=== PATIENT | male | born 1985 | race Caucasian/White ===

== ENCOUNTER 2022-02-28 14:57 | Emergency (ER) | payer BC, SELFPAY ==
--- OUTSIDE RECORDS SUMMARY | 2022-02-28 14:59 | XMS REPORT | Continuity of Care Document ---
:1985 Author Organization [facility] Address [address] [place] [address] [address] [place] [address] Care Team Providers Name Role Phone Rickey Ramos MD Attending Clinician Doctor Unassigned, [place] Attending Clinician Unavailable Payers Payer Name Policy Type Policy Number Effective Date Expiration Date S ource Problems Condition Condition Condition Status Onset Resolution Last Treating Co mments Source Name Details Category Date Date Treatment Clinician Date Intermitte Intermitte Disease Active Overview : Univers nt nt 4-04 Added ity of diarrhea diarrhea 00:00: automatic Ramakrishna as 00 ally from Medical request Branch for surgery [id number] Family Family Disease Active Overview: Univer s history of history of 404 Added it y of colon colon 00:00: automatic [place] cancer cancer 00 ally from Medical request Branch for surgery [id number] Colon Colon Disease Active Overview: Univer s cancer cancer 4-04 Added ity of screening screening 00:00: [place] 00 ally from Medical request Branch for surgery [id number] Mixed Mixed Disease Active Univers hyperlipid hyperlipid 4-03 it y of emia emia 00:00: [place] 00 Medical Branch Elevated Elevated Disease Active Unive rs bilirubin bilirubin 4-03 ity of 00:00: [place] 00 Medical Branch Family Family Disease Active Univers history of history of 3-30 it y of Cook Cook 00:00: [place] syndrome syndrome 00 Medica l Branch Bipolar Bipolar Disease Active Univers affective affective 3-30 [place] of disorder, disorder, 00:[place] remission 00 Medi vivek status status Branch unspecifie unspecifie d d Allergies, Adverse Reactions, Alerts This patient has no known allergies or adverse reactions. Social History Social Habit Start Date Stop Date Quantity Comments [facility] Start Date Stop Date Source Former smoker 2019-02-14 00:00:00 2019-02-14 00:00:00 [facility] [place] [facility] Medications Ordered Filled Start Stop Current Ordering Indication Dosage Frequency Signature Comments Components Source Medication Medication Date Date Medication? Clinician (SIG) Name Name levoFLOXaci Yes [id number] 750mg Take 1 Univers n 750 mg 4-24 tablet by ity of tablet 00:00: mouth [place] 00 every 24 Medical (twenty-fo Branch ur) hours. benzonatate Yes [id number] 100mg Take 1 Univers 100 mg 4-24 capsule by ity of capsule 00:00: mouth 3 [place] 00 (three) Medical times Branch daily as needed for Cough. levoFLOXaci 2019- No [id number] 750mg Take 1 Univers n 750 mg 4-24 09-07 tablet by ity o f tablet 00:00: 00:00 mouth [place] 00 :00 every 24 Medical (twenty-fo Branch ur) hours. benzonatate 2019- No [id number] 100mg Take 1 Univers 100 mg 4-24 09-07 capsule by ity of capsule 00:00: 00:00 mouth 3 [place] 00 :00 (three) Medical times Branch daily as needed for Cough. albuterol Yes [id number] 2{puff} Inhale 2 Univers 90 4-11 Puffs ity of mcg/actuati 00:00: every 6 Ramakrishna as on inhaler 00 (six) Medical hours as Branch needed for Wheezing or Shortness of Breath. albuterol 2019- No [id number] 2{puff} Inhale 2 Univers 90 4-11 09-07 Puffs ity of mcg/actuati 00:00: 00:00 every 6 [place] inhaler 00 :00 (six) Medical hours as Branch needed for Wheezing or Shortness of Breath. divalproex 2017- Yes 250mg Take 1 Univ ers 250 mg EC 5-05 tablet by ity o f tablet 00:00: mouth [place] 00 every 8 Medical (eight) Branch hours. divalproex 2018-0 Yes 250mg Take 1 Univ ers 250 mg EC 5-05 tablet by ity o f tablet 00:00: mouth [place] 00 every 8 Medical (eight) Branch hours. Vital Signs Vital Name Observation Time Observation Value Comments Source Systolic blood 2019-02-14 20:19:00 125 mm[Hg] Univer sity of pressure [place] [facility] Diastolic blood 2019-02-14 20:19:00 80 mm[Hg] [facility] rsity of pressure [facility] Heart rate 2019-02-14 20:19:00 70 /min [facility] Respiratory rate 2019-02-14 20:19:00 14 /min [facility] Oxygen saturation in 2019-02-14 20:19:00 98 /min [facility] Arterial blood by [facility] Pulse oximetry [place] Body temperature 2019-02-14 20:08:00 37.33 [facility] Body height 2019-02-14 20:08:00 177.8 cm [facility] Body weight 2019-02-14 20:08:00 74.844 kg [facility] BMI 2019-02-14 20:08:00 23.68 kg/m2 [facility] Procedures Procedure Date / Time Performed Performing Clinician Sour e AC PANEL 20 + LACTIC 2019-02-14 21:04:00 Rickey Ramos [facility] VW 2019-02-14 20:38:05 [facility] o f [facility] EKG-12 LEAD 2019-02-14 20:19:19 [facility] o [facility] CONSENT/REFUSAL FOR 2019-02-14 19:43:01 Doctor Unassigned, No Un [facility] DIAGNOSIS AND Name [facility] TREATMENT Encounters Start End Encounter Admission Attending Care Care Encounter Source Date/Time Date/Time Type Type Clinicians Facility Department ID 2019-02-14 2019-02-14 Emergency Richard [facility] [id number] [facility] 15:14:23 16:25:00 Rickey Snider [id number] i ty of [place] [id number] 084 Branch 2019-02-14 2019-02-14 Orders Doctor RAY [id number] Univers 00:00:00 00:00:00 Only Unassigned, GAURI [id number] ity of [place] [facility] [id number] Ramakrishna [id number] [facility] 009 Branch Results Test Description Test Time Test Comments Results Result Comments Source AC PANEL 20 + LACTIC ACID 2019-02-14 21:09:00 Test Item Value Reference Range Interpretation Comme nts PH (test code = 2) 7.35-7.45 PCO2 (test code = 3625048048) See_Comment [Automated message] The system which ge nerated this result transmit katelyn reference range: 35 - 45 mmHg. The reference range was not used to interpret th is result as normal/abnormal . PO2 (test code = 7034318775) See_Comment [Automated message] The system which ge nerated this result transmit katelyn reference range: 80 - 100 mmHg. The reference range was not used to interpret th is result as normal/abnormal . HCO3 (test code = 5109210760) See_Comment [Automated message] The system which ge nerated this result transmit katelyn reference range: 22 - 26 mEq/L. The reference range was not used to interpret th is result as normal/abnormal . BE (test code = 4982291171) See_Comment [Automated message] The system which ge nerated this result transmit katelyn reference range: -3.0 - 3 .0 mEq/L. The reference range was not used to interpret th is result as normal/abnormal . THB (test code = 9648066673) 15.6 g/dL 13.5-18 %O2HB (test code = 8924086225) 95.2 % 94-99 %COHB ART (test code = 0.7 % 0-1.5 5880242907) %METHB ART (test code = 0.3 % 0.4-1.5 L 7258436370) VOL%O2 ART (test code = 20.9 % 15-23 0536216690) NA (test code = 9986940724) 140 mmol/L 135-145 K+ (test code = 1511033279) 4.0 mmol/L 3.5-5 AC CA IONZ (test code = 4.80 mg/dL 4.5-5.3 5000672983) GLUCOSE (test code = 97 mg/dL 70-110 8083677256) LACTIC ACID (test code = 1.57 mmol/L 0.5-2.2 8227987759) Lab Interpretation (test code = Abnormal 47700-5) [facility] [id number] 20:40:26* * * * * * * * ORIGINAL REPORT * * * * * * * *CHEST PORTABLE ONE VIEW HISTORY:Dyspnea TECHNIQUE: Frontal, portable projection of the chest is obtained. COMPARISON: 10/01/2018 FINDINGS: The lungs are clear. The heart size and mediastinal silhouetteare normal. No pleural effusion or pneumothorax is seen. CONCLUSIONS: No acute cardiopulmonary disease. [facility], Radiant Results Inft User - 02/14/2019 3:40 PMCDT* * * * * * * * ORIGINAL REPORT * * * * * * * *CHEST PORTABLE ONE VIEWHISTORY:DyspneaTECHNIQUE: Frontal, portable projection of the chest is obtained.COMPARISON: 10/01/2018FINDINGS: The lungs are clear. The heart size and mediastinal silhouetteare normal. No pleural effusion or pneumothorax is seen.C ONCLUSIONS: No acute cardiopulmonary disease.[facility]
[2022-02-28 15:37] LABS: Absolute Lymphocytes (CBC) 0.9 K/uL (0.7-4.9); Hematocrit 43.4 % (39.6-49.0); Lymphocytes % 16.7 % (15.3-44.8); MCV 88.3 fL (80-100); MPV 9.8 fL (7.6-11.3); RBC Red Blood Cell Count 4.92 M/uL (4.33-5.43)
[2022-02-28 15:56] LABS: Albumin 4.1 g/dL (3.4-5.0); Bilirubin Total 0.5 mg/dL (0.2-1.0); Protein, Total 7.5 g/dL (6.4-8.2)
[2022-02-28] MEDS ORDERED: NA CHLORIDE 0.9% 1,000 ML ONE (16:22)
[2022-02-28] MEDS ORDERED: ONDANSETRON 4 MG/2 ML VIAL ONE (16:22)
[2022-02-28] MEDS ORDERED: FAMOTIDINE 20 MG/2 ML VIAL IV ONE (16:23)
--- NOTE | 2022-02-28 16:33 | RAD REPORT ---
EXAM DESCRIPTION: CTAbdomen Pelvis W Contrast - 02/28/2022 4:24 pm CLINICAL HISTORY: Abdominal pain. lower abdomen pain COMPARISON: No comparisons TECHNIQUE: Biphasic CT imaging of the abdomen and pelvis was performed with 100 ml non-ionic IV cont rast. All CT scans are performed using dose optimization technique as appropriate and may include automated exposure control or mA/KV adjustment according to patient size. FINDINGS: The lung bases are clear. The liver, spleen, pancreas, adrenal glands and kidneys are within normal limits. No bowel obstruction, free air, significant free fluid or abscess. Trace free fluid is seen right per icolic gutter. There is mild inflammatory change seen surrounding several sigmoid diverticula in the right aspect of the pelvis. The appendix is normal. No evidence of significant lymphadenopathy. No suspicious bony findings. IMPRESSION: Mild diverticulitis suspected involving the sigmoid colon in the pelvis. No abscess is e vident. Moderate stool is present throughout the colon.
[2022-02-28 16:51] LABS: Urine Blood Negative (Negative); Urine Glucose Negative (Negative); Urine Protein Negative (Negative)
--- NOTE | 2022-02-28 17:01 | ER ---
Nurse's Notes [facility] Name: Rivera Gil Age: 36 yrs Sex: Male : 1985 Arrival Date: 02/28/2022 Time: 15:00 Bed DIS2 Private MD: Diagnosis: Diverticulitis of intestine, part unspecified, without perforation or abscess without bleeding Presentation: 02/28 14:52 Chief complaint: EMS states: About an hour ago pt c/o of ABD pain below the umbilicus vg1 that radiates to the RLQ; last BM was today at 0900, pt stated "normal", denies vomiting/diarrhea, stated nausea. Also denies dark stools. Last meal was at 1030 today. 14:52 Coronavirus screen: Vaccine status: Patient reports being unvaccinated. Client denies vg1 travel out of the [place] in the last 14 days. Ebola Screen: Patient denies exposure to infectious person. Patient denies travel to an Ebola-affected area in the 21 days before illness onset. Initial Sepsis Screen: Does the patient meet any 2 criteria? No. Patient's initial sepsis screen is negative. Does the patient have a suspected source of infection? No. Patient's initial sepsis screen is negative. Risk Assessment: Do you want to hurt yourself or someone else? Patient reports no desire to harm self or others. Onset of symptoms was February 28, 2022. 14:52 Method Of Arrival: EMS: [place] [id number] 14:52 Acuity: MEE 3 vg1 14:52 Chief complaint: Patient states: rectal pressure, and pain sharp pain during urination. vg1 Triage Assessment: 14:52 General: Appears in no apparent distress. comfortable, Behavior is calm, cooperative. vg1 Pain: Complains of pain in suprapubic area, right lower quadrant and left lower quadrant Pain currently is 7 out of 10 on a pain scale. Quality of pain is described as sharp, Pain began 2 hours ago. 14:52 EENT: No signs and/or symptoms were reported regarding the EENT system. Neuro: Level of vg1 Consciousness is awake, alert, obeys commands, Oriented to person, place, time, situation. Cardiovascular: Patient's skin is warm and dry. Respiratory: Airway is patent Respiratory effort is even, unlabored. GI: Abdomen is flat, non-distended, Abdomen is tender to palpation in suprapubic area, right lower quadrant and left lower quadrant Reports nausea, Patient currently denies diarrhea, vomiting. : Reports pain in suprapubic area with urination. Derm: Skin is intact, Skin is pink, warm \\T\\ dry. Musculoskeletal: Circulation, motion, and sensation intact. Historical: - Allergies: 15:03 No Known Allergies; vg1 - Home Meds: 15:03 None [Active]; vg1 - PMHx: 15:03 None; vg1 - PSHx: 15:03 None; vg1 - Immunization history:: Client reports having NOT received the Covid vaccine. - Social history:: Smoking status: Patient denies any tobacco usage or history of. Patient uses alcohol, occasionally. Screenin:06 Abuse screen: Denies threats or abuse. Nutritional screening: No deficits noted. vg1 Tuberculosis screening: No symptoms or risk factors identified. Fall Risk No fall in past 12 months (0 pts). No secondary diagnosis (0 pts). IV access (20 points). Ambulatory Aid- None/Bed Rest/Nurse Assist (0 pts). Gait- Normal/Bed Rest/Wheelchair (0 pts) Mental Status- Oriented to own ability (0 pts). Total Moreno Fall Scale indicates No Risk (0-24 pts). Assessment: 16:14 Reassessment: Patient appears in no apparent distress at this time. Patient and/or tp1 family updated on plan of care and expected duration. Pain level reassessed. Patient is alert, oriented x 3, equal unlabored respirations, skin warm/dry/pink. complaining of mid lower quadrant pain, rates pain 6/10. denies nausea at this time. 16:15 Reassessment: escorted to CT via wheelchair by [employer]. tp1 16:35 Reassessment: returned from CT. tp1 17:15 Reassessment: Patient appears in no apparent distress at this time. No changes from tp1 previously documented assessment. Patient is alert, oriented x 3, equal unlabored respirations, skin warm/dry/pink. 17:21 Reassessment: awaiting discharge for antibiotics to finish administering. tp1 Vital Signs: 14:52 BP 132 / 90; Pulse 64; Resp 16; Temp 98.2(O); Pulse Ox 99% on R/A; Weight 77.11 kg; vg1 Height 5 ft. 10 in. (177.80 cm); Pain 7/10; 15:15 BP 133 / 89; Pulse 57; Resp 16; Pulse Ox 100% on R/A; tp1 16:54 BP 129 / 76; Pulse 72; Resp 16; Pulse Ox 100% on R/A; tp1 17:33 BP 125 / 83; Pulse 77; Resp 16; Pulse Ox 100% on R/A; tp1 14:52 Body Mass Index 24.39 (77.11 kg, 177.80 cm) vg1 ED Course: 14:52 Arm band placed on. vg1 15:00 Patient arrived in ED. tp1 15:03 Ruy Hernandez PA is PHCP. cp 15:03 Ruy Barrios MD is Attending Physician. cp 15:03 Triage completed. vg1 15:06 Patient has correct armband on for positive identification. Placed in gown. Bed in low vg1 position. Call light in reach. Side rails up X 1. 15:32 CBC with Diff Sent. em1 15:32 CMP Sent. em1 15:32 Lipase Sent. em1 15:32 Initial lab(s) drawn, by me, sent to lab. Inserted saline lock: 22 gauge in left em1 forearm, using aseptic technique. Blood collected. 16:10 Billie Cortes, RN is Primary Nurse. tp1 17:56 No provider procedures requiring assistance completed. ss 18:05 IV discontinued, intact, bleeding controlled, No redness/swelling at site. Pressure ss dressing applied. Administered Medications: 16:42 Drug: NS 0.9% 1000 ml Route: IV; Rate: 1 bolus; Site: left forearm; tp1 18:05 Follow up: IV Status: Completed infusion; IV Intake: 1000ml ss 16:43 Drug: Zofran (Ondansetron) 4 mg Route: IVP; Site: left forearm; tp1 18:05 Follow up: Response: No adverse reaction ss 16:46 Drug: Pepcid (famotidine) 20 mg Route: IVP; Site: left forearm; tp1 18:05 Follow up: Response: No adverse reaction ss 17:05 Drug: Rocephin (cefTRIAXone) 1 grams Route: IV; Rate: calculated rate; Site: left tp1 forearm; 17:26 Follow up: Response: No adverse reaction; IV Status: Completed infusion; IV Intake: tp1 100ml 17:10 Drug: Ketorolac 15 mg Route: IVP; Site: left forearm; tp1 18:05 Follow up: Response: No adverse reaction ss 17:12 Drug: Cipro (ciprofloxacin) 500 mg Route: PO; tp1 17:34 Follow up: Response: No adverse reaction tp1 17:33 Drug: metroNIDAZOLE 500 mg Volume: 100 ml; Route: IVPB; Infused Over: 30 mins; Site: tp1 left forearm; 18:05 Follow up: IV Status: Completed infusion ss Intake: 17:26 IV: 100ml; Total: 100ml. tp1 18:05 IV: 1000ml; Total: 1100ml. ss Outcome: 17:00 Discharge ordered by . cp 17:56 Condition: good ss 17:56 Discharge instructions given to patient, family, Instructed on discharge instructions, follow up and referral plans. medication usage, Demonstrated understanding of instructions, follow-up care, medications, Prescriptions given X 4. 18:05 Discharged to home ambulatory, with family. ss 18:06 Patient left the ED. ss Signatures: Lokesh Jansen em1 Christi Oden, NICOLAS RN ss Ruy Hernandez PA PA cp Garcia, Victoria, RN RN vg1 Billie Cortes RN RN tp1 Corrections: (The following items were deleted from the chart) 16:20 16:17 Reassessment: Patient appears in no apparent distress at this time. Patient tp1 and/or family updated on plan of care and expected duration. Pain level reassessed. Patient is alert, oriented x 3, equal unlabored respirations, skin warm/dry/pink. complaining of mid lower quadrant pain, rates pain 6/10 tp1 16:52 16:17 Reassessment: Patient appears in no apparent distress at this time. Patient tp1 and/or family updated on plan of care and expected duration. Pain level reassessed. Patient is alert, oriented x 3, equal unlabored respirations, skin warm/dry/pink. complaining of mid lower quadrant pain, rates pain 6/10. denies nausea at this time tp1
--- NOTE | 2022-02-28 17:02 | EDPHYS ---
Physician Documentation [facility] Name: Rivera Gil Age: 36 yrs Sex: Male : 1985 Arrival Date: 02/28/2022 Time: 15:00 Bed DIS2 Private MD: ED Physician Ruy Barrios HPI: 02/28 15:15 This 36 yrs old Male presents to ER via EMS with complaints of Abdominal Pain. cp 15:15 The patient presents with abdominal pain in the periumbilical area. Onset: The cp symptoms/episode began/occurred 2 hour(s) ago. The symptoms do not radiate. Associated signs and symptoms: Pertinent negatives: nausea, vomiting, and diarrhea, anorexia, blood in stools, chest pain, constipation, dysuria, fever, testicular pain. The symptoms are described as constant. Severity of pain: in the emergency department the pain is unchanged despite home interventions. Historical: - Allergies: 15:03 No Known Allergies; vg1 - Home Meds: 15:03 None [Active]; vg1 - PMHx: 15:03 None; vg1 - PSHx: 15:03 None; vg1 - Immunization history:: Client reports having NOT received the Covid vaccine. - Social history:: Smoking status: Patient denies any tobacco usage or history of. Patient uses alcohol, occasionally. ROS: 15:20 Constitutional: Negative for body aches, chills, fever, poor PO intake. cp 15:20 Cardiovascular: Negative for chest pain, edema, palpitations. cp 15:20 Respiratory: Negative for cough, shortness of breath, wheezing. 15:20 Abdomen/GI: Positive for abdominal pain, Negative for nausea, vomiting, and diarrhea, constipation, anorexia, black/tarry stool, rectal bleeding. 15:20 Back: Negative for pain at rest, pain with movement. 15:20 : Negative for urinary symptoms, testicular pain 15:20 Neuro: Negative for altered mental status, dizziness, headache, weakness. 15:20 All other systems are negative. Exam: 15:25 Constitutional: The patient appears in no acute distress, alert, awake, cp non-diaphoretic, non-toxic, well developed, well nourished. 15:25 Head/Face: Normocephalic, atraumatic. cp 15:25 Eyes: Periorbital structures: appear normal, Conjunctiva: normal, no exudate, no injection, Sclera: no appreciated abnormality, Lids and lashes: appear normal, bilaterally. 15:25 ENT: External ear(s): are unremarkable, Nose: is normal, Mouth: Lips: moist, Oral mucosa: pink and intact, moist, Posterior pharynx: Airway: no evidence of obstruction, patent. 15:25 Neck: ROM/movement: is normal, is supple, without pain, no range of motions limitations. 15:25 Chest/axilla: Inspection: normal, Palpation: is normal, no crepitus, no tenderness. 15:25 Cardiovascular: Rate: normal, Rhythm: regular. 15:25 Respiratory: the patient does not display signs of respiratory distress, Respirations: normal, no use of accessory muscles, labored breathing, is not present, Breath sounds: are clear throughout, no decreased breath sounds, no stridor, no wheezing. 15:25 Abdomen/GI: Inspection: abdomen appears normal, Bowel sounds: active, all quadrants, Palpation: soft, in all quadrants, mild abdominal tenderness, in the umbilical area and suprapubic area, rebound tenderness, is not appreciated, voluntary guarding, is not appreciated, involuntary guarding, is not appreciated. 15:25 Back: pain, is absent, ROM is normal. Vital Signs: 14:52 BP 132 / 90; Pulse 64; Resp 16; Temp 98.2(O); Pulse Ox 99% on R/A; Weight 77.11 kg; vg1 Height 5 ft. 10 in. (177.80 cm); Pain 7/10; 15:15 BP 133 / 89; Pulse 57; Resp 16; Pulse Ox 100% on R/A; tp1 16:54 BP 129 / 76; Pulse 72; Resp 16; Pulse Ox 100% on R/A; tp1 17:33 BP 125 / 83; Pulse 77; Resp 16; Pulse Ox 100% on R/A; tp1 14:52 Body Mass Index 24.39 (77.11 kg, 177.80 cm) vg1 MDM: 15:[address] [facility] 16:00 Differential diagnosis: appendicitis, bowel obstruction, diverticulitis, cp Pyelonephritis, Testicular Torsion, Ureterolithiasis, urinary tract infection. 17:00 Data reviewed: vital signs, nurses notes, lab test result(s), radiologic studies, plain cp films. 17:00 Counseling: I had a detailed discussion with the patient and/or guardian regarding: the cp historical points, exam findings, and any diagnostic results supporting the discharge/admit diagnosis, lab results, radiology results, the need for outpatient follow up, a family practitioner, to return to the emergency department if symptoms worsen or persist or if there are any questions or concerns that arise at home. Response to treatment: the patient's symptoms have markedly improved after treatment, and as a result, I will discharge patient. ED course: VSS. Pain and nausea improved with meds. Patient appears non-toxic. Will discharge to home for continued monitoring. 02/28 15:07 Order name: CBC with Diff cp 02/28 15:07 Order name: CMP cp 02/28 15:07 Order name: Lipase 02/28 15:42 Order name: CBC with Automated Diff; Complete Time: 16:07 EDMS 02/28 15:57 Order name: Comprehensive Metabolic Panel; Complete Time: 16:07 EDMS 02/28 15:07 Order name: CT Abd/Pelvis - IV Contrast Only 02/28 15:57 Order name: Lipase; Complete Time: 16:07 EDMS 02/28 16:34 Order name: CT; Complete Time: 16:48 EDMS 02/28 16:52 Order name: Urine Dipstick-Ancillary EDID 02/28 15:07 Order name: IV Saline Lock; Complete Time: 15:32 cp 02/28 15:07 Order name: Labs collected and sent; Complete Time: 15:32 cp 02/28 16:48 Order name: Urine Dipstick-Ancillary (obtain specimen); Complete Time: 16:54 cp Administered Medications: 16:42 Drug: NS 0.9% 1000 ml Route: IV; Rate: 1 bolus; Site: left forearm; tp1 18:05 Follow up: IV Status: Completed infusion; IV Intake: 1000ml ss 16:43 Drug: Zofran (Ondansetron) 4 mg Route: IVP; Site: left forearm; tp1 18:05 Follow up: Response: No adverse reaction ss 16:46 Drug: Pepcid (famotidine) 20 mg Route: IVP; Site: left forearm; tp1 18:05 Follow up: Response: No adverse reaction ss 17:05 Drug: Rocephin (cefTRIAXone) 1 grams Route: IV; Rate: calculated rate; Site: left tp1 forearm; 17:26 Follow up: Response: No adverse reaction; IV Status: Completed infusion; IV Intake: tp1 100ml 17:10 Drug: Ketorolac 15 mg Route: IVP; Site: left forearm; tp1 18:05 Follow up: Response: No adverse reaction ss 17:12 Drug: Cipro (ciprofloxacin) 500 mg Route: PO; tp1 17:34 Follow up: Response: No adverse reaction tp1 17:33 Drug: metroNIDAZOLE 500 mg Volume: 100 ml; Route: IVPB; Infused Over: 30 mins; Site: tp1 left forearm; 18:05 Follow up: IV Status: Completed infusion ss Disposition Summary: 02/28/22 17:00 Discharge Ordered Location: Home cp Problem: new cp Symptoms: have improved cp Condition: Stable cp Diagnosis - Diverticulitis of intestine, part unspecified, without perforation or abscess cp without bleeding Followup: cp - With: Private Physician - When: 1 - 2 days - Reason: Recheck today's complaints Discharge Instructions: - Discharge Summary Sheet cp - Diverticulitis cp Forms: - Medication Reconciliation Form cp - Thank You Letter cp - Antibiotic Education cp - Prescription Opioid Use cp - Work release form Prescriptions: - Zofran 4 mg Oral Tablet - take 1 tablet by ORAL route every 12 hours As needed; 20 tablet; Refills: 0, cp Product Selection Permitted - Cipro 500 mg Oral Tablet - take 1 tablet by ORAL route every 12 hours for 10 days; 20 tablet; Refills: 0, cp Product Selection Permitted - Metronidazole 500 mg Oral Tablet - take 1 tablet by ORAL route every 8 hours; 30 tablet; Refills: 0, Product cp Selection Permitted - Tramadol 50 mg Oral Tablet - take 1 tablet by ORAL route every 8 hours as needed; 12 tablet; Refills: 0, cp Product Selection Permitted Signatures: Dispatcher [employer] EDMS Ruy Barrios MD MD cha Page, Corey, PA PA cp Garcia, Victoria, RN RN vg1 Billie Cortes RN RN tp1 Christi Oden RN ss Corrections: (The following items were deleted from the chart) 16:54 15:08 UA MICROSCOPIC+[id number].LAB.BRZ ordered. EDMS EDMS
[2022-02-28] MEDS ORDERED: CIPROFLOXACIN HCL 500 MG TAB ONE (17:12)
[2022-02-28] MEDS ORDERED: NA CHLORIDE 0.9% 100 ML ONE (17:12)
[2022-02-28] MEDS ORDERED: CEFTRIAXONE 1000 MG/VIAL ONE (17:12)
[2022-02-28] MEDS ORDERED: KETOROLAC 30 MG/ML INJ ONE (17:12)
[2022-02-28] MEDS ORDERED: METRONIDAZOLE 500mg IVPB 500 MG/100 ML BAG IV ONE (17:13)
[2022-03-02 03:58] VITALS: O2SAT 100
[2022-03-02 04:06] VITALS: BP 125/83
== END 2022-02-28 18:06 | disposition home or self-care (01) ==
LOC: ER 14:57
DX: K57.32 Diverticulitis of large intestine without perforation or abscess without bleeding (principal)
CPT/HCPCS: 96365; 96367; 85025; 36415; 81003; 83690; 80053; 74177; 96375; 99284; Q9967; J7030; J2405